=== PATIENT | female | born 1980 | race Caucasian/White ===

== ENCOUNTER → 2022-04-15 14:23 | Outpatient (BNVA) | payer OTHER, SELFPAY | PROVIDERS: Visit Provider Physician Assistant Medical | DX: S63.91XA Sprain of unspecified part of right wrist and hand, initial encounter (principal); W18.30XA Fall on same level, unspecified, initial encounter | CPT/HCPCS: 29125; 73110; 73130; 99203 ==

== ENCOUNTER 2024-10-10 12:39 | Emergency (ER) | payer OTHER, SELFPAY ==
--- NOTE | ~2024-10-10 | CT_ITS ---
EXAMINATION: CT CERVICAL SPINE WITHOUT CONTRAST CLINICAL INFORMATION: Fall, head strike COMPARISON: None available. TECHNIQUE: Spiral CT of the cervical spine performed in axial plane without IV contrast. Sagittal, coronal, and thin section axial reformatted images were constructed from the axial data set. This CT examination was performed using dose optimization techniques as appropriate, variously including the following: *Automated exposure control *Adjustment of mA and/or kV according to patient size (this includes techniques or standardized protocols for targeted exams where dose is matched to indication/reason for exam; i.e. extremities or head) *Use of iterative reconstruction technique FINDINGS: Straightening of the normal lordosis, nonspecific. No scoliosis. No fracture, traumatic subluxation, compression deformity, or suspicious bone lesion. The atlantoaxial joint and C1-2 articulation are intact and aligned. There is a small osteophyte subjacent to the anterior C1 arch. No subluxations. Moderate disc degeneration 5 6 and C6-7 with ventrally projecting disc osteophytes. There are also dorsally projecting small disc osteophytic ridge complex is resulting in at least moderate central canal narrowing. Multilevel uncinate spurs are present, most significant C3-4 on the right, and C5-6 on the left. No prevertebral soft tissue abnormality. The thyroid appears normal. Lung apices are clear. CT/CT cervical spine wo IV con IMPRESSION: 1. No CT evidence of acute cervical spine fracture or injury. 2. Degenerative changes as discussed. Electronically signed by: Zackery Alvarez MD 10/10/2024 02:57 PM [facility]
--- NOTE | ~2024-10-10 | CT_ITS ---
EXAMINATION: CT HEAD WITHOUT CONTRAST CLINICAL INFORMATION: fall +head stike COMPARISON: None available. TECHNIQUE: Contiguous axial imaging was performed from the skull base to vertex without intravenous administration of contrast. This CT examination was performed using dose optimization techniques as appropriate, variously including the following: *Automated exposure control *Adjustment of mA and/or kV according to patient size (this includes techniques or standardized protocols for targeted exams where dose is matched to indication/reason for exam; i.e. extremities or head) *Use of iterative reconstruction technique DLP: 780 mGy-cm FINDINGS: Bony calvarium is intact. Skull base is intact. No acute intracranial hemorrhage, mass effect, midline shift, hydrocephalus or herniation. Cheung-white matter differentiation is normal. Posterior cranial fossa contents demonstrated no acute intracranial hemorrhage or mass effect. Sellar/suprasellar region is normal. Calcified plaques in the cavernous segments both ICA. Mucosal thickening, ethmoid cells. Poor pneumatization of the frontal sinuses. Tympanic cavities and mastoid cells are aerated Edentulous, maxilla.. CT/CT head/brain wo IV con IMPRESSION: No acute fracture, bony calvarium. No acute intracranial hemorrhage. Electronically signed by: Mansoor Verma MD 10/10/2024 02:50 PM EST
--- NOTE | ~2024-10-10 | XR_ITS ---
EXAMINATION: XR ANKLE 3 OR MORE VIEWS LEFT, XR FOOT 3 OR MORE VIEWS LEFT HISTORY: fall on ice COMPARISON: There are no prior studies available for comparison. FINDINGS: Six views of the left foot and ankle are submitted. Osseous mineralization is normal. Well-corticated osseous densities adjacent to the tips of the medial and lateral malleoli may be the result of old trauma. There is no acute fracture or dislocation. The joint spaces are preserved. There is soft tissue calcification in the region of the plantar fascia. XR/XR foot LT min 3V IMPRESSION: No evidence of acute fracture of the left foot or ankle. Electronically signed by: Al Vo MD 10/10/2024 02:08 PM [facility]
--- NOTE | ~2024-10-10 | XR_ITS ---
EXAMINATION: XR ANKLE 3 OR MORE VIEWS LEFT, XR FOOT 3 OR MORE VIEWS LEFT HISTORY: fall on ice COMPARISON: There are no prior studies available for comparison. FINDINGS: Six views of the left foot and ankle are submitted. Osseous mineralization is normal. Well-corticated osseous densities adjacent to the tips of the medial and lateral malleoli may be the result of old trauma. There is no acute fracture or dislocation. The joint spaces are preserved. There is soft tissue calcification in the region of the plantar fascia. XR/XR ankle LT min 3V IMPRESSION: No evidence of acute fracture of the left foot or ankle. Electronically signed by: Al Vo MD 10/10/2024 02:08 PM [facility]
--- NOTE | 2024-10-10 13:04 | ED_ITS ---
HPI - Fall General Chief Complaint: Fall Stated Complaint: Fall headache l ankle pain Time Seen by Provider: 10/10/24 18:27 Source: patient Mode of arrival: ambulatory Limitations: no limitations History of Present Illness ED Provider: Krysta Vo PA-C [facility] Narrative: Patient is a 44 year old assigned female at with no reported medical history presenting to the emergency department today with a headache and left ankle pain after a trip and fall. Patient states that she slipped on the ice this morning and hit her head and her left ankle. Patient denies any loss of consciousness with the incident. Patient denies any dizziness, lightheadedness, abdominal pain, nausea, vomiting, fever, chills, blurry vision, double vision, loss of vision, chest pain, difficulty breathing, shortness of breath, back pain, night sweats, pain with urination, increased urinary frequency, increased urinary urgency, blood in her urine or stool, syncope or a near syncopal episode, bowel incontinence, bladder incontinence, or any other complaints at this time. Loss of consciousness: none Context: tripped/slipped Related Data Allergies Allergy/AdvReac Type Severity Reaction Status Date / Time duloxetine [Cymbalta] Allergy Unknown Hives Verified 10/10/24 13:06 Review of Systems Constitutional: Constitutional: Reports headache(s) Eyes: Eyes: Reports no additional eye complaints, Denies blurry vision, Denies change in vision, Denies diplopia, Denies eye discharge, Denies loss of vision and Denies eye pain ENT: Reports headache(s) Cardiovascular: Cardiovascular: Reports no additional cardiovascular complaints, Denies chest pain, Denies lightheadedness, Denies Loss of Consciousness and Denies dyspnea Respiratory: Respiratory: Reports no additional respiratory complaints and Denies dyspnea Gastrointestinal: Gastrointestinal: Reports no additional gastrointestinal complaints, Denies abdominal pain, Denies melena, Denies hematochezia, Denies change in bowel habits and Denies change in stool character Genitourinary: Genitourinary: Denies hematuria, Denies urinary frequency, D enies dysuria, Denies urinary incontinence, Denies urinary hesitancy and Denies urinary urgency Musculoskeletal: Musculoskeletal: Reports no additional musculoskeletal complaints, Denies numbness and Denies tingling Comments: left ankle pain Neurologic: Reports headache(s), Denies loss of vision, Denies numbness and Denies tingling Psychiatric: Psychiatric: Reports no additional psychiatric complaints Endocrine: Endocrine: Reports no additional endocrine complaints Hematologic/Lymphatic: Hematologic/Lymphatic: Reports no additional hematologic/lymphatic complaints Allergic/Immunologic: Allergic/Immunologic: Reports no additional allergic /immunologic complaints PMFSH Past Medical History Attestation statement: The following information was validated with the patient. Source: old records reviewed and nursing notes reviewed Social History Social History Advance Directives: No Advance Directives Information Provided: No Do you have a plan to hurt others: No Plan Physical Exam Vital Signs: Vital Signs: Last Vital Signs Temp 97.4 F 10/10/24 18:38 Pulse 63 10/10/24 18:38 Resp 18 10/10/24 18:38 BP 190/86 H 10/10/24 18:38 Pulse Ox 98 10/10/24 18:38 O2 Del Method Room Air 10/10/24 18:38 BMI result Body Mass Index 42.2 Const: General: cooperative, no acute distress, alert and awake Nutritional Appearance: well nourished Orientation/consciousness: patient oriented x3 Limitations: no limitations HEENT: Head: Yes normal to inspection and Yes atraumatic Ears: hearing grossly normal bilaterally and external ears normal General nose exam: Normal external nose present, no nasal discharge noted and no epistaxis Face and sinus: Yes normal facial exam, No abrasion and No laceration Mouth: Normal oral and palatal mucosa present, no drooling and no muffled voice Eyes: General: appearance normal, both eyes and all related structures Periorbital: periorbital findings normal Eyelids: Yes eyelids normal Conjunctivae: conjunctivae normal Pupils: Equal, round and reactive pupils present EOM: EOMs intact bilaterally Neck: Neck: Yes normal visual inspection, Yes full ROM and Yes no ly mphadenopathy Chest: Chest palpation & inspection: normal inspection of the chest Resp: Effort & Inspection: normal respiratory effort and able to speak in complete sentences GI: Inspection: Yes normal to inspection Neuro: General: patient oriented x3 and moves all extremities Cranial nerves: Yes Equal, round and reactive pupils present Cognition (Neuro): normal cognition Extrem: General: Yes normal to inspection, Yes full ROM and Yes capillary refill normal Psych: Appearance: grossly normal Mental Status: mental status grossly normal Affect: normal affect Attitude: cooperative Thought process: Normal thought process present Thought content: Normal thought content present Insight: Good insight present (Psych) Course Course Course Narrative: This is a Rapid Medical Exam performed in triage by Meghana Pickens PA-C. Full HPI, ROS and PE to be performed by primary ED provider. 44yo F presenting to the ED c/o ALMONTE and L ankle pain s/p fall on ice this AM. denies sx prior to fall. +head strike, NO LOC, or AC use. PE: +L ankle swelling & ttp, NV intact. ambulating w/antalgic gait. no focal deficits Plan: Head/C-spine CT, x-ray Medical Decision Making Medical Decision Making MDM Narrative: Patient is a 44 year old assigned female at with no reported medical history presenting to the emergency department today with a headache and left ankle pain after a trip and fall. Patient's physical exam was unremarkable. Patient's left foot and ankle x-rays showed no acute process. Patient's CT head and c-spine showed no acute process. I explained my physical exam findings as well as all test results to the patient. I answered all questions asked by the patient. I stressed the importance of the patient taking her medication as directed (either prescribed or as the over the counter packaging recommends). I stressed the importance of the patient following up with her primary care provider. I stressed the importance of the patient returning to the emergency department immediately if her symptoms were to worsen or if she were to develop any dizziness, shortness of breath, difficulty breathing, chest pain, blurry vision, loss of vision, nausea, vomiting, abdominal pain, fever, chills, back pain, or any other complaints. Patient verbalized agreement and understanding with this treatment plan and discharge. Differential Diagnosis Differential Diagnoses: The differential diagnosis associated with the presentation includes Headache Slip and fall Concussion Ankle sprain Ankle strain Admission/Observation Consideration of admission/observation: Escalation of care including admission/observation considered Patient would have been admitted to the hospital had her work up had any findings where hospital admission was appropriate and her clinical presentation warranted hospital admission. Independent Interpretation I performed an independent interpretation of an: Plain X-Ray and CT Scan Interpretation: My interpretation is in agreement with the radiologist's impression of these imaging studies. EXAMINATION: XR ANKLE 3 OR MORE VIEWS LEFT, XR FOOT 3 OR MORE VIEWS LEFT HISTORY: fall on ice COMPARISON: There are no prior studies available for comparison. FINDINGS: Six views of the left foot and ankle are submitted. Osseous mineralization is normal. Well-corticated osseous densities adjacent to the tips of the medial and lateral malleoli may be the result of old trauma. There is no acute fracture or dislocation. The joint spaces are preserved. There is soft tissue calcification in the region of the plantar fascia. XR/XR ankle LT min 3V IMPRESSION: No evidence of acute fracture of the left foot or ankle. Electronically signed by: Al Vo MD 10/10/2024 02:08 PM [facility] Dictated By: Al Vo MD Signed By: Electronically signed by Al Vo MD 10/10/24 1408 Report Number: [id number]: Total DLP = 695.00 mGy-cm EXAMINATION: CT CERVICAL SPINE WITHOUT CONTRAST CLINICAL INFORMATION: Fall, head strike COMPARISON: None available. TECHNIQUE: Spiral CT of the cervical spine performed in axial plane without IV contrast. Sagittal, coronal, and thin section axial reformatted images were constructed from the axial data set. This CT examination was performed using dose optimization techniques as appropriate, variously including the following: *Automated exposure control *Adjustment of mA and/or kV according to patient size (this includes techniques or standardized protocols for targeted exams where dose is matched to indication/reason for exam; i.e. extremities or head) *Use of iterative reconstruction technique FINDINGS: Straightening of the normal lordosis, nonspecific. No scoliosis. No fracture, traumatic subluxation, compression deformity, or suspicious bone lesion. The atlantoaxial joint and C1-2 articulation are intact and aligned. There is a small osteophyte subjacent to the anterior C1 arch. No subluxations. Moderate disc degeneration 5 6 and C6-7 with ventrally projecting disc osteophytes. There are also dorsally projecting small disc osteophytic ridge complex is resulting in at least moderate central canal narrowing. Multilevel uncinate spurs are present, most significant C3-4 on the right, and C5-6 on the left. No prevertebral soft tissue abnormality. The thyroid appears normal. Lung apices are clear. CT/CT cervical spine wo IV con IMPRESSION: 1. No CT evidence of acute cervical spine fracture or injury. 2. Degenerative changes as discussed. Electronically signed by: Zackery Alvarez MD 10/10/2024 02:57 PM EST RP Dictated By: Zackery Alvarez MD Signed By: Electronically signed by Zackery Alvarez MD 10/10/24 1457 EXAMINATION: XR ANKLE 3 OR MORE VIEWS LEFT, XR FOOT 3 OR MORE VIEWS LEFT HISTORY: fall on ice COMPARISON: There are no prior studies available for comparison. FINDINGS: Six views of the left foot and ankle are submitted. Osseous mineralization is normal. Well-corticated osseous densities adjacent to the tips of the medial and lateral malleoli may be the result of old trauma. There is no acute fracture or dislocation. The joint spaces are preserved. There is soft tissue calcification in the region of the plantar fascia. XR/XR foot LT min 3V IMPRESSION: No evidence of acute fracture of the left foot or ankle. Electronically signed by: Al Vo MD 10/10/2024 02:08 PM EST RP Dictated By: Al Vo MD Signed By: Electronically signed by Al Vo MD 10/10/24 1408 Report Number: [id number]: Total DLP = 780.00 mGy-cm EXAMINATION: CT HEAD WITHOUT CONTRAST CLINICAL INFORMATION: fall +head stike COMPARISON: None available. TECHNIQUE: Contiguous axial imaging was performed from the skull base to vertex without intravenous administration of contrast. This CT examination was performed using dose optimization techniques as appropriate, variously including the following: *Automated exposure control *Adjustment of mA and/or kV according to patient size (this includes techniques or standardized protocols for targeted exams where dose is matched to indication/reason for exam; i.e. extremities or head) *Use of iterative reconstruction technique DLP: 780 mGy-cm FINDINGS: Bony calvarium is intact. Skull base is intact. No acute intracranial hemorrhage, mass effect, midline shift, hydrocephalus or herniation. Cheung-white matter differentiation is normal. Posterior cranial fossa contents demonstrated no acute intracranial hemorrhage or mass effect. Sellar/suprasellar region is normal. Calcified plaques in the cavernous segments both ICA. Mucosal thickening, ethmoid cells. Poor pneumatization of the frontal sinuses. Tympanic cavities and mastoid cells are aerated Edentulous, maxilla.. CT/CT head/brain wo IV con IMPRESSION: No acute fracture, bony calvarium. No acute intracranial hemorrhage. Electronically signed by: Mansoor Verma MD 10/10/2024 02:50 PM [facility] Dictated By: Mansoor Floyd MD Signed By: Electronically signed by Mansoor Geller MD 10/10/24 8733 Radiology Impression Discussion of test interpretation with radiology: I have reviewed the radiologist's reading. Discharge Plan Discharge Clinical Impression: Ankle sprain, Headache, Fall from slipping Patient Disposition: Home, Self-Care Instructions: Ankle Sprain (DC), Acute Headache (DC) Additional Instructions: Follow up with your primary care provider. Return to the emergency department i mmediately if your symptoms worsen or if you develop any dizziness, shortness of breath, difficulty breathing, chest pain, blurry vision, loss of vision, nausea, vomiting, abdominal pain, fever, chills, back pain, or any other complaints. Referrals: [facility] [[place] Group] (Call to establish and follow up with a primary care provider. If you already have a primary care provider, please follow up with them.) [facility] [Provider Group] (Call to establish and follow up with a primary care provider. If you already have a primary care provider, please follow up with them.) [facility] [Provider Group] (Call to establish and follow up with a primary care provider. If you already have a primary care provider, please follow up with them.) Stand Alone Forms: Work/School Release Interventions: ED Discharge Assessment Last Done: 10/10/24 18:38 Discharge Date/Time: 10/10/24 18:41 Print Language: Kyrgyz
[2024-10-10 13:05] VITALS: BP 162/83; PULSE 63; RESP 16; TEMP 36.6; O2SAT 97; BMI 42.2
[2024-10-10 18:38] VITALS: BP 190/86; PULSE 63; RESP 18; TEMP 36.3; O2SAT 98
== END 2024-10-10 18:41 | disposition home or self-care (01) ==
LOC: HO.ED 18:35
PROVIDERS: Emergency Provider Emergency Medicine Emergency Medical Services
DX: S93.402A Sprain of unspecified ligament of left ankle, initial encounter (principal); R51.9 Headache, unspecified; M54.2 Cervicalgia; M25.572 Pain in left ankle and joints of left foot; W00.0XXA Fall on same level due to ice and snow, initial encounter; Y93.01 Activity, walking, marching and hiking; Y92.9 Unspecified place or not applicable; Y99.8 Other external cause status
CPT/HCPCS: 70450; 72125; 73610; 73630; 99282; 99283; 99284

== ENCOUNTER → 2024-10-10 13:06 | Outpatient (BNV) | payer OTHER, SELFPAY | PROVIDERS: Visit Provider Radiology Diagnostic Radiology | DX: M50.30 Other cervical disc degeneration, unspecified cervical region (principal); S09.90XA Unspecified injury of head, initial encounter; W19.XXXA Unspecified fall, initial encounter; M25.572 Pain in left ankle and joints of left foot | CPT/HCPCS: 70450; 72125; 73610; 73630 ==

== ENCOUNTER 2025-07-11 11:27 | Outpatient (AMB) | payer OTHER, SELFPAY ==
--- OUTSIDE RECORDS SUMMARY | 2024-07-03 04:05 | XMS_ITS ---
Author Organization [facility] Address [address] [place] [address] Care Team Providers Care Senior Sql Server Developer Name Role Phone [facility] Unavailable [phone] Encounters Encounter Location Date Provider Diagnosis [facility] [address] [place] [address] 07/03/2024 [facility] Plan Of Treatment No Information Progress Notes * Edilberto GRAHAMOB:1980 ([age] yo F)Acc No.[id number]:07/03/2024 Progress Notes Patient: Clarissa TERRAZAS Provider: Ernst NICOLAS :1980 A ge:43 Y S ex:Female Date:07/03/2024 Phone: Address:[address] [place], [place] [address], [id number] Subjective: * Chief Complaints: * * Medical History: Objective: * Vitals: Assessment: Plan: * Treatment: * Billing Information: * Visit Code: * Procedure Codes: * Electronic signature of [facility] on 07/11/2025 at 02:04 PM EST Sign off status: Pending * Provider: Ernst JOAQUIN [facility] Date: Generated for Dirk carroll/Satya/eTransmitting on: 09/10/2024 02:04 PM EST
[2025-07-11 11:28] VITALS: BP 180/98; PULSE 76; RESP 18; TEMP 36.1; BMI 42.8
--- NOTE | 2025-07-11 11:28 | A.OFFPC_ITS ---
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 Silva Last visit: About 10 years ago Last PE: same Specialist:methadone clinic OBGYN:needs a referral Past medical history: depression, anxiety, no sleeping well, fibromyalgia, Medications: * Family HX: breast cancer paternal grandmother. MS maternal grandmother, mother has lupus, Problem: The patient is a 44-year-old female presenting for management of anxiety, chronic pain, and blood pressure concerns. She reports a history of anxiety for which she previously took medication, but she has not seen a provider for it in a long time. For the last two years, she has not experienced mood fluctuations, with periods of extreme happiness followed by extreme sadness. The patient reports experiencing pain every single day, which is primarily located in her lower back (L1-L5 region) and described as feeling like bone on bone. This pain radiates down her left leg. She believes recent weight gain has contributed to the worsening of her pain. Reports that her back has always has been an issue but they opted not to do surgery because of her age. Reports that she was told that if she started having back surgery at such a young age, she will need back surgeries for the rest of her life. Past surgical history includes a cyst surgery at age 30. She recalls having an adverse reaction to cortisone injections and expresses a dislike for them. She has no prior history of heart issues but is now concerned about her blood pressure, which she monitors at home. The patient reports being tired but is unable to sleep. She had to stop working because of her health issues. Patient reports that she was on MS Contin and Percocet and after the stopped dependent these medications, she started getting up elsewhere and she became addicted. She is currently on methadone in his going to the clinic everyday. She is taking methadone 75 mg in the morning and 40 mg at night a total of 115 mg. Reports that she was also on Lyrica for her fibromyalgia in the past. Reports that she has been doing the methadone clinic for 10 years now. [facility] Medical History Methadone use Opioid abuse Depression Anxiety Family History Maternal Grandmother Multiple sclerosis Paternal Grandmother Breast cancer Mother Lupus Social History Alcohol intake: never Patient Tobacco Use Status: Current everyday Tobacco user Tobacco use type: Cigarette e-Cigarette/Vaping Use: Currently Using Substance Use Type: Marijuana Current occupational status: unemployed Cognitive needs: No Hearing needs: No Vision needs: No Questionnaire PHQ-9 Over the last 2 weeks, how often have you been bothered by any of the following problems? 1. Little interest or pleasure in doing things: several days 2. Feeling down, depressed, or hopeless: several days 3. Trouble falling or staying asleep, or sleeping too much: several days 4. Feeling tired or having little energy: several days 5. Poor appetite or overeating: several days 6. Feeling bad about yourself - or that you are a failure or have let yourself or your family down: several days 7. Trouble concentrating on things, such as reading the newspaper or watching television: several days 8. Moving or speaking so slowly that other people could have noticed. Or the opposite - being so fidgety or restless that you have been moving around a lot more than usual: not at all 9. Thoughts that you would be better off or of hurting yourself in some way: not at all Total score: 7 Depression Screening Interpretation: Positive Depression Screening Done: Yes 19797 - PHQ-9 Billing: Yes Source: Developed by Drs. Al Murrieta, Mattie Lee, Luis Felipe Henriquez and colleagues, with an educational jael from [employer]. AUDIT C Alcohol Use Questionnaire (AUDIT-C) 1. How often do you have a drink containing alcohol?: Never Total Score: 0 NATHALIA-7 AMB Questionnaire NATHALIA-7 Date NATHALIA - 7 assessed: 07/11/25 Feeling nervous, anxious, or on edge: 0 = Not at all Not being able to stop or control worryin = Not at all Worrying too much about different things: 0 = Not at all Trouble relaxin = Several days Being so restless that it is hard to sit still: 1 = Several days Becoming easily annoyed or irritable: 0 = Not at all Feeling afraid as if something awful might happen: 0 = Not at all Total NATHALIA-7 score (0-4 normal; 5-9 mild; 10-14 moderate; 15-21 severe): 2 Source: Developed by Drs. Al Murrieta, Mattie Lee, Luis Felipe Henriquez and colleagues, with an educational jael from [employer]. NATHALIA-7 Assessment Billing NATHALIA-7 Assessment Tool: NATHALIA-7 Assessment 41105 Review of Systems Const Reports body aches, Reports difficulty sleeping, Reports fatigue, Denies headache(s), Reports lethargy and Reports weight gain Eyes Denies loss of vision ENT Denies vertigo, Denies dizziness, Denies headache(s) and Denies sore throat Card Denies chest pain, Denies leg edema and Denies lightheadedness Resp Denies cough, Denies hemoptysis and Denies wheezing GI Denies abdominal pain, Denies melena, Denies constipation, Denies diarrhea and Denies vomiting Denies urinary frequency, Denies dysuria and Denies urinary urgency Musc Reports back pain (chronic severe spinal stenosis.), Denies arthralgias, Denies joint swelling, Denies numbness, Reports radiating pain into limb (Left leg) and Denies tingling Neuro Denies Abnormal speech present, Denies behavioral changes, Denies vertigo, Denies dizziness, Denies headache(s), Denies loss of vision, Denies memory loss, Denies numbness and Denies tingling Psych Reports anxiety, Denies behavioral changes, Reports depression, Denies memory loss and Denies panic attacks Endo Reports fatigue Joni/Lymph Denies easy bleeding and Denies easy bruising Aller/Immun Denies wheezing Physical exam (Primary Care) Vital Signs: Last Vital Signs Temp 96.9 F 07/11/25 11:28 Pulse 76 07/11/25 11:28 Resp 18 07/11/25 11:28 BP 180/98 H 07/11/25 11:28 Oxygen Delivery Method Room Air 07/11/25 11:28 BMI result Body Mass Index 42.8 Tobacco/Smoking Status: Tobacco use Status Tobacco use date assessed 07/11/25 07/11/25 11:39 Patient Tobacco Use Status Current everyday Tobacco 07/11/25 11:39 Tobacco use type Cigarette 07/11/25 11:39 e-Cigarette/Vaping Use Currently Using 07/11/25 11:39 PHQ-9: PHQ-9 Score PHQ-9: Total score 7 07/11/25 13:01 Depression Screening Interpretation: Positive Const General: healthy appearing, no acute distress, alert and awake Nutritional Appearance: well nourished Orientation/consciousness: oriented to person, oriented to place and oriented to time HENMT Ears: TM's normal bilaterally General nose exam: Normal nasal mucous membranes and turbinates present Eyes Conjunctivae: conjunctivae normal Sclerae: sclerae normal Pupils: Equal, round and reactive pupils present Neck Neck: Yes no lymphadenopathy and Yes no JVD Thyroid: Thyroid normal Carotids: no bruits Resp Effort & Inspection: normal respiratory effort and not tachypneic Auscultation: no crackles, no rales, no rhonchi and no wheezes Cardio Rate: regular rate Rhythm: regular rhythm Heart sounds: no murmurs and normal S1 and S2 GI Palpation (GI): Soft to palpation, nontender, no hepatomegaly and no splenomegaly Auscultation: normal bowel sounds General: Yes no CVA tenderness Back/Spine/Pelvis Back: no CVA tenderness Thoracic/Lumbar Spine: lumbar spinal tenderness at L5 Skin General skin exam: no rashes or lesions noted and dry skin Neuro General: oriented to person, oriented to place and oriented to time Cranial nerves: Yes Equal, round and reactive pupils present Speech: No Abnormal speech present Gait exam (Neuro): Normal gait present Motor exam (neuro): no tremor noted Extrem Right upper extremity: full ROM Left upper extremity: full ROM Right lower extremity: full ROM; no edema Left lower extremity: full ROM; no edema Psych Mental Status: mental status grossly normal Speech and movement: Normal speech and movement present Affect: normal affect Attitude: cooperative Thought process: Normal thought process present Coding Level of Care Code New Pt Level 4 (59565) Diagnoses Anxiety F41.9 Depression, unspecified depression type F32.A Depression Type: unspecified Methadone use F11.90 Chest pain, unspecified type R07.9 Chest pain type: unspecified Heart palpitations R00.2 Chronic low back pain with left-sided sciatica, unspecified back pain laterality M54.42; G89.29 Back pain laterality: unspecified Chronicity: chronic Sciatica laterality: sciatica of left side Sciatica presence: with sciatica Fibromyalgia M79.7 Fatigue, unspecified type R53.83 Fatigue type: unspecified Hypertension, unspecified type I10 Hypertension type: unspecified Additional Codes NATHALIA-7 Assessment Billing - NATHALIA-7 Assessment Tool: NATHALIA-7 Assessment 15012 ([id number]) PHQ-9 - 41199 - PHQ-9 Billing: Yes ([id number]) Time Spent (min) 43 Assessment & Plan Assessment & Plan (1) Anxiety: Code(s): F41.9 - Anxiety disorder, unspecified Category: Medical Plan: Patient reports significant stress and a history of anxiety. Refer the patient to Psychiatry/counseling. (2) Depression: Code(s): F32.A - Depression, unspecified Category: Medical Qualifiers: Depression Type: unspecified Qualified Code(s): F32.A - Depression, unspecified Plan: Similarly, chronic depression due to ongoing health concerns. Refer the patient to Psychiatry. (3) Methadone use: Code(s): F11.90 - Opioid use, unspecified, uncomplicated Category: Medical Plan: Reports history of opioid abuse, starting after being placed on narcotics and was taken off this medication. Patient reports that she started getting these medications else where and this became a problem. She has been on methadone for over 10 years, currently on methadone 75 mg in the morning and 40 mg at night. She goes to the methadone clinic everyday. (4) Chest pain: Code(s): R07.9 - Chest pain, unspecified Category: Medical Qualifiers: Chest pain type: unspecified Qualified Code(s): R07.9 - Chest pain, unspecified Plan: Patient reports that this pain comes and goes. Associates with heart palpitation, she explained that it is difficult to determine which happens 1st. She has been evaluated in emergency room for these concerns to no avail. EKG and labs were ordered to further evaluate. (5) Heart palpitations: Code(s): R00.2 - Palpitations Category: Medical Plan: Ongoing on and off, but frequent heart palpitation. The heart rhythm regular on auscultation. We will order a 7 day Holter monitor to further evaluate. (6) Low back pain: Code(s): M54.50 - Low back pain, unspecified Category: Medical Qualifiers: Back pain laterality: unspecified Chronicity: chronic Sciatica laterality: sciatica of left side Sciatica presence: with sciatica Qualified Code(s): M54.42 - Lumbago with sciatica, left side; G89.29 - Other chronic pain Plan: The patient reports chronic low back pain, described as bone on bone, with radiation down the left leg. Reports chronic disc abnormalities in the past. Ct abdomen and pelvis on 02/06/2025 showed severe central canal stenosis at L1-L2 and L2-L3 with moderate central canal stenosis at L3-L4 and L4-L5. Positive lumbar tenderness on exam, close to the L5 region. Lumbar X-ray ordered to further evaluate. (7) Fibromyalgia: Code(s): M79.7 - Fibromyalgia Category: Medical Plan: Patient reports generalized aches and pains. Reports that she was diagnosed with fibromyalgia and was taking Lyrica in the past. We will hold off on s tarting the patient on this medication for now. We will talk to the patient more about the importance of physical activity on encourage physical therapy at her next visit. (8) Fatigue: Code(s): R53.83 - Other fatigue Category: Medical Qualifiers: Fatigue type: unspecified Qualified Code(s): R53.83 - Other fatigue Plan: The patient reports being tired but unable to sleep. Management will focus on addressing underlying factors such as stress and anxiety through counseling. (9) High blood pressure: Code(s): I10 - Essential (primary) hypertension Category: Medical Qualifiers: Hypertension type: unspecified Qualified Code(s): I10 - Essential (primary) hypertension Plan: The patient's elevated blood pressure and heart rate will be further evaluated. A starting dose of a medication to help lower the heart rate and blood pressure will be prescribed. Diagnostic workup will include fasting labs, an EKG, and a heart monitor. The patient is advised to monitor her blood pressure at home. A nurse visit is scheduled in two weeks for a blood pressure check. Orders: Orders Complete Blood Count Auto Diff 07/11/25 M54.50 - Low back pain, unspecified, M79.7 - Fibromyalgia, R52 - Pain, unspecified, R53.83 - Other fatigue, Z00.00 - Encounter for general adult medical examination without abnormal findings Comprehensive [place]. Panel Fast 07/11/25 M54.50 - Low back pain, unspecified, M79.7 - Fibromyalgia, R52 - Pain, unspecified, R53.83 - Other fatigue, Z00.00 - Encounter for general adult medical examination without abnormal findings TSH reflex Free T4 07/11/25 M54.50 - Low back pain, unspecified, M79.7 - Fibromyalgia, R52 - Pain, unspecified, R53.83 - Other fatigue, Z00.00 - Encounter for general adult medical examination without abnormal findings Vitamin D 25-OH Total 07/11/25 M54.50 - Low back pain, unspecified, M79.7 - Fibromyalgia, R52 - Pain, unspecified, R53.83 - Other fatigue, Z00.00 - Encounter for general adult medical examination without abnormal findings Erythrocyte Sedimentation Rate 07/11/25 M54.50 - Low back pain, unspecified, M79.7 - Fibromyalgia, R52 - Pain, unspecified, R53.83 - Other fatigue, Z00.00 - Encounter for general adult medical examination without abnormal findings CRP High Sensitivity 07/11/25 M54.50 - Low back pain, unspecified, M79.7 - Fibromyalgia, R52 - Pain, unspecified, R53.83 - Other fatigue, Z00.00 - Encounter for general adult medical examination without abnormal findings HIV Ab/Ag 07/11/25 M54.50 - Low back pain, unspecified, M79.7 - Fibromyalgia, R52 - Pain, unspecified, R53.83 - Other fatigue, Z00.00 - Encounter for general adult medical examination without abnormal findings Syphilis Screen 07/11/25 M54.50 - Low back pain, unspecified, M79.7 - Fibromyalgia, R52 - Pain, unspecified, R53.83 - Other fatigue, Z00.00 - Encounter for general adult medical examination without abnormal findings Cyclic Citrullinated Peptide 07/11/25 M54.50 - Low back pain, unspecified, M79.7 - Fibromyalgia, R52 - Pain, unspecified, R53.83 - Other fatigue, Z00.00 - Encounter for general adult medical examination without abnormal findings ECG 7 day holter monitor 07/11/25 R00.2 - Palpitations CK, Total+Isoenzymes, Serum Today R07.9 - Chest pain, unspecified Lipid Panel 07/11/25 M54.50 - Low back pain, unspecified, M79.7 - Fibromyalgia, R52 - Pain, unspecified, R53.83 - Other fatigue, Z00.00 - Encounter for general adult medical examination without abnormal findings UA CC w/rflx Micro + Cult 07/11/25 M54.50 - Low back pain, unspecified, M79.7 - Fibromyalgia, R52 - Pain, unspecified, R53.83 - Other fatigue, Z00.00 - Encounter for general adult medical examination without abnormal findings CT NG by PCR Urine 07/11/25 M54.50 - Low back pain, unspecified, M79.7 - Fibromyalgia, R52 - Pain, unspecified, R53.83 - Other fatigue, Z00.00 - Encounter for general adult medical examination without abnormal findings Rheumatoid Factor 07/11/25 M54.50 - Low back pain, unspecified, M79.7 - Fibromyalgia, R52 - Pain, unspecified, R53.83 - Other fatigue, Z00.00 - Encounter for general adult medical examination without abnormal findings Anti DNA DS Antibody 07/11/25 M54.50 - Low back pain, unspecified, M79.7 - F ibromyalgia, R52 - Pain, unspecified, R53.83 - Other fatigue, Z00.00 - Encounter for general adult medical examination without abnormal findings Lyme IgG/IgM w/reflex to WB 07/11/25 M54.50 - Low back pain, unspecified, M79.7 - Fibromyalgia, R52 - Pain, unspecified, R53.83 - Other fatigue, Z00.00 - Encounter for general adult medical examination without abnormal findings ECG 12 lead EKG 07/11/25 R07.9 - Chest pain, unspecified XR lumbar spine 2-3V 11/04/25 M54.50 - Low back pain, unspecified Referrals Psychiatry Referral F32.A - Depression, unspecified, F41.9 - Anxiety disorder, unspecified Medications: New lisinopril 5 mg PO DAILY 30 tabs 1RF
--- OUTSIDE RECORDS SUMMARY | 2025-07-11 14:04 | XMS_ITS | Patient Health Record ---
Author Organization [facility] Address [address] [place] [address] Support Name Relationship Address Phone Clarissa Graham Guarantor Unknown Unavailable Allergies No Known Allergies Reason For Referral No Information Social History Tobacco Use: Social History Observation Description Date Details (start date - stop date) Never Smoker NA - NA Tobacco Control (Standard) Question Answer Notes Tobacco use: Nonsmoker Plan Of Treatment Pending Test Test Name Order Date COMPREHENSIVE METABOLIC PANEL (44628) CBC (INCLUDES DIFF/PLT) (6399) URINALYSIS, COMPLETE (5463) 06/19/2024 HEMOGLOBIN A1c (496) 06/19/2024 HCG, TOTAL, QL (8435) 06/19/2024 LIPID PANEL, STANDARD (7600) 06/19/2024 THYROID PANEL WITH TSH (7444) 06/19/2024 Insurance Providers Payer Name Payer Address Payer Phone Subscriber Number Group Number Insured Name Patient Relationship to Insured Coverage Start Date Coverage End Date [facility] Medicaid [address] [place] [phone] [id number] Clarissa Graham Self - patient is the insured Medical (General) History Medical History History ICD Code denies
== END 2025-07-11 12:42 | disposition home or self-care (01) ==
LOC: HO.HMCH 11:27
DX: F41.9 Anxiety disorder, unspecified (principal); F32.A Depression, unspecified; F11.90 Opioid use, unspecified, uncomplicated; R07.9 Chest pain, unspecified; R00.2 Palpitations; M54.42 Lumbago with sciatica, left side; G89.29 Other chronic pain; M79.7 Fibromyalgia; R53.83 Other fatigue; I10 Essential (primary) hypertension

== ENCOUNTER → 2025-07-11 11:27 | Outpatient (BNVA) | payer OTHER, SELFPAY | DX: M79.7 Fibromyalgia (principal); F41.9 Anxiety disorder, unspecified; F32.A Depression, unspecified; F11.90 Opioid use, unspecified, uncomplicated; R07.9 Chest pain, unspecified; R00.2 Palpitations; M54.42 Lumbago with sciatica, left side; G89.29 Other chronic pain; R53.83 Other fatigue; I10 Essential (primary) hypertension | CPT/HCPCS: 96127; 99202 ==